=== PATIENT | female | born 1955 | race Caucasian/White ===

== ENCOUNTER → 2020-01-16 14:34 | Outpatient (CLI) | payer BC, SELFPAY | PROVIDERS: Visit Provider Nurse Practitioner | DX: R30.0 Dysuria (principal) | CPT/HCPCS: 87077; 87086; 87186 ==

== ENCOUNTER → 2020-02-16 09:10 | Outpatient (CLI) | payer BC, SELFPAY | PROVIDERS: Visit Provider Physician Assistant | DX: R30.0 Dysuria (principal) | CPT/HCPCS: 87077; 87086; 87186 ==

== ENCOUNTER → 2021-09-10 17:06 | Outpatient (CLI) | payer MEDICARE, OTHER, SELFPAY | PROVIDERS: Referring Provider Nurse Practitioner Family; Visit Provider Nurse Practitioner Family | DX: R30.0 Dysuria (principal) | CPT/HCPCS: 87077; 87086; 87186 ==

== ENCOUNTER → 2021-09-14 12:21 | Outpatient (CLI) | payer MEDICARE, OTHER, SELFPAY ==
--- NOTE | 2021-09-14 12:23 | DI.RAD.S_ITS ---
PROCEDURE: XR DEXA AXIAL SKELETON INDICATIONS: Asymptomatic menopausal state COMPARISON: None. FINDINGS: This blank DEXA report has been sent in error by the PACS system. The correct and complete report will be forthcoming in 1-2 days. Thank you for your patience and understanding. Dictated by: Jennifer Perez MD, PhD on 09/15/2021 at 7:42 Approved by: Jennifer Perez MD, PhD on 09/15/2021 at 7:42
== END ==
PROVIDERS: PCP Internal Medicine; Referring Provider Internal Medicine; Visit Provider Internal Medicine
DX: M85.852 Other specified disorders of bone density and structure, left thigh (principal); Z78.0 Asymptomatic menopausal state
CPT/HCPCS: 77080

== ENCOUNTER → 2021-12-11 11:05 | Outpatient (CLI) | payer MEDICARE, OTHER, SELFPAY ==
--- NOTE | 2021-12-11 | DI.MG.S_ITS ---
BILATERAL DIGITAL SCREENING MAMMOGRAM 3D/2D WITH CAD: 12/11/2021 CLINICAL: Routine screening. Comparison is made to exams dated: 10/16/2017 mammogram and 10/26/2015 mammogram - outside location. The tissue of both breasts is heterogeneously dense. This may lower the sensitivity of mammography. Current study was also evaluated with a Computer Aided Detection (CAD) system. No significant masses, calcifications, or other findings are seen in either breast. There has been no significant interval change. IMPRESSION: NEGATIVE There is no mammographic evidence of malignancy. A 1 year screening mammogram is recommended. This exam was interpreted at Station ID: [id number]. NOTE: For mammograms, a report in lay terms will be sent to the patient. Approximately 15% of breast malignancies will not be visualized mammographically. In the management of a palpable breast mass, a negative mammogram must not discourage biopsy of a clinically suspicious lesion. Electronically Signed By: Eros anderson/claire:12/11/2021 12:56:36 letter sent: Normal Exam ACR BI-RADS Category 1: Negative [id number]
== END ==
PROVIDERS: PCP Internal Medicine; Referring Provider Internal Medicine; Visit Provider Internal Medicine
DX: Z12.31 Encounter for screening mammogram for malignant neoplasm of breast (principal)
CPT/HCPCS: 77063; 77067

== ENCOUNTER 2022-06-13 13:45 | Outpatient (RCR) | payer MEDICARE, OTHER, SELFPAY ==
--- NOTE | 2022-06-11 10:59 | PT.OIE ---
Current Diagnoses Benign paroxysmal vertigo, right ear (06/11/22) Benign paroxysmal vertigo, left ear (06/11/22) Visit Care Team Role Provider Type Gwen Don MD Attending Provider Physician Family Provider Primary Care Provider Referring Provider Specialty: Internal Medicine Address: Phone: Email: Physical Therapy Initial Evaluation PT-OP-A Visit Information Start: 06/10/22 15:40 Freq: Status: Active Protocol: Document 06/11/22 08:56 AMB (Rec: 06/11/22 09:38 AMB [id number]) Out-Patient Physical Therapy Visit Information Visit Information Visit Type Initial Evaluation Visit Start Time 09:00 Visit Stop Time 09:45 Total Visit Minutes 45 Visit Number 1 PT-OP-B Current Condition Start: 06/10/22 15:40 Freq: Status: Active Protocol: Document 06/11/22 08:56 AMB (Rec: 06/11/22 09:38 AMB [id number]) Current Condition History of Current Condition Onset Date 2 months ago Current Complaints Dizziness History of Current Condition Dizziness started 2 months ago with a fall to the back of the head. Had been drinking a lot so doesn't remember the fall. No imaging. After about 2 weeks hearing changes seemed to mostly resolve, seemed to be in left ear ( hearing changes were a feeling of a delay of sound and a tinny sound. Reports 10 seconds of dizziness when she rolls over, bending over. Dr. Oscar Woods for the L ear 2x. Does have neck pain hx, but no surgical history. Reports she is no longer drinking. Denies diplopia, numbness/ tingling, dysphagia, dysarthria, dysmetria sx. Personal Factors Other Personal Factors That May Effect Osteopenia, neck pain, Therapy/Recovery headaches, depression, HTN, hypothyroid PT-OP-C Subjective Start: 06/10/22 15:40 Freq: Status: Active Protocol: Document 06/11/22 09:00 AMB (Rec: 06/11/22 10:53 AMB [id number]) Patient Questionnaires Dizziness Handicap Inventory DHI Score 24 PT-OP-O Vestibular Start: 06/10/22 15:40 Freq: Status: Active Protocol: Document 06/11/22 09:00 AMB (Rec: 06/11/22 10:53 AMB [id number]) Vestibular Assessment Positional Testing Darrell-Hallpike Positive Right,Negative Left, Upbeating,< 60 Seconds Comments Vestibular Comments Darrell Hallpikex2, First with visible upbeating nystagmus peristing for ~10 seconds, with sx in 3rd position. 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 PT-OP-T Assessment and Plan Start: 06/10/22 15:40 Freq: Status: Active Protocol: Document 06/11/22 09:00 AMB (Rec: 06/11/22 09:47 [facility] [id number]) Physical Therapy Assessment Rehab Potential Rehabilitation Potential Good Evaluation Complexity Number of Personal Factors/Comorbidities 1-2 Number of Body Systems Impaired 1-2 Clinical Presentation at Evaluation Stable Impairments Impairments Vestibular Goals Two Impairment Peggy Short Term Goal (STG) Myrtle will have a negative Peggy. STG Duration 4 weeks One Impairment Dizziness Short Term Goal (STG) Myrtle will roll over in bed without dizziness. 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 Assessment Summary Assessment Myrtle presents with signs of R posterior canalithiasis BPPV. She reports she was treated for L BPPV in her doctor's office. She tolerated the Peggy well, with no nystagmus and little dizziness with the second repetition. She will benefit from continued physical therapy to make sure that her BPPV is completely clear and treat as necessary. Physical Therapy Plan Frequency and Duration Frequency of Treatment 2x/Week Duration of treatment (weeks) 8 Plan of Care Start Date 06/11/22 Plan of Care End Date 08/06/22 Therapeutic Interventions Therapeutic Interventions Balance Training,Home Exercise Program,Neuromuscular Re- education,Self-Care/Home Management,Therapeutic Activities,Therapeutic Exercises,Vestibular Rehabilitation Next Visit Focus/Plan Next Note Type Treatment Note Next Visit Plan Recheck R BPPV
--- NOTE | 2022-06-11 11:00 | PT.OPPOC ---
Physical, Occupational & Speech Therapy At [facility] Current Diagnoses Benign paroxysmal vertigo, right ear (06/11/22) Benign paroxysmal vertigo, left ear (06/11/22) Visit Care Team Role Provider Type Gwen Don MD Attending Provider Physician Family Provider Primary Care Provider Referring Provider Specialty: Internal Medicine Address: Phone: Email: Plan Of Care PT-OP-T Assessment and Plan Start: 06/10/22 15:40 Freq: Status: Active Protocol: Document 06/11/22 09:00 AMB (Rec: 06/11/22 09:47 AMB [id number]) Physical Therapy Assessment Rehab Potential Rehabilitation Potential Good Evaluation Complexity Number of Personal Factors/Comorbidities 1-2 Number of Body Systems Impaired 1-2 Clinical Presentation at Evaluation Stable Impairments Impairments Vestibular Goals Two Impairment Peggy Short Term Goal (STG) Myrtle will have a negative Peggy. STG Duration 4 weeks One Impairment Dizziness Short Term Goal (STG) Myrtle will roll over in bed without dizziness. 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 Assessment Summary Assessment Myrtle presents with signs of R posterior canalithiasis BPPV. She reports she was treated for L BPPV in her doctor's office. She tolerated the Peggy well, with no nystagmus and little dizziness with the second repetition. She will benefit from continued physical therapy to make sure that her BPPV is completely clear and treat as necessary. Physical Therapy Plan Frequency and Duration Frequency of Treatment 2x/Week Duration of treatment (weeks) 8 Plan of Care Start Date 06/11/22 Plan of Care End Date 08/06/22 Therapeutic Interventions Therapeutic Interventions Balance Training,Home Exercise Program,Neuromuscular Re- education,Self-Care/Home Management,Therapeutic Activities,Therapeutic Exercises,Vestibular Rehabilitation Next Visit Focus/Plan Next Note Type Treatment Note Next Visit Plan Recheck R BPPV Plan of Care Dates Plan of Care Start Date 06/11/22 Plan of Care End Date 08/06/22 Electronically Signed by: Shaina Max, PT 06/11/22 1100 If you are in agreement with this Plan of Care, please return a signed and dated copy. I have reviewed this Plan of Care and certify that the skilled therapy services above are required to meet the patient?s needs. Physician Signature Date Printed Name and Credentials Clinical Instructor Signature Printed Name and Credentials
--- NOTE | 2022-06-13 14:16 | PT.OTN ---
Current Diagnoses Benign paroxysmal vertigo, right ear (06/13/22) Benign paroxysmal vertigo, left ear (06/13/22) Physical Therapy Treatment Note PT-OP-A Visit Information Start: 06/10/22 15:40 Freq: Status: Active Protocol: Document 06/13/22 13:47 DCW (Rec: 06/13/22 14:16 DCW [id number]) Out-Patient Physical Therapy Visit Information Visit Information Visit Type Treatment Note Visit Start Time 13:47 Visit Stop Time 14:12 Total Visit Minutes 25 Visit Number 2 PT-OP-B Current Condition Start: 06/10/22 15:40 Freq: Status: Active Protocol: Document 06/11/22 08:56 AMB (Rec: 06/11/22 09:38 AMB [id number]) Current Condition History of Current Condition Onset Date 2 months ago Current Complaints Dizziness History of Current Condition Dizziness started 2 months ago with a fall to the back of the head. Had been drinking a lot so doesn't remember the fall. No imaging. After about 2 weeks hearing changes seemed to mostly resolve, seemed to be in left ear ( hearing changes were a feeling of a delay of sound and a tinny sound. Reports 10 seconds of dizziness when she rolls over, bending over. Dr. Oscar Woods for the L ear 2x. Does have neck pain hx, but no surgical history. Reports she is no longer drinking. Denies diplopia, numbness/ tingling, dysphagia, dysarthria, dysmetria sx. Personal Factors Other Personal Factors That May Effect Osteopenia, neck pain, Therapy/Recovery headaches, depression, HTN, hypothyroid PT-OP-C Subjective Start: 06/10/22 15:40 Freq: Status: Active Protocol: Document 06/13/22 13:47 DCW (Rec: 06/13/22 14:16 DCW [id number]) OP-PT Subjective Patient Comments Patient Comments I felt pretty good since Friday, but starting today, I 've felt a little dizzy sitting up. PT-OP-O Vestibular Start: 06/10/22 15:40 Freq: Status: Active Protocol: Document 06/13/22 13:47 DCW (Rec: 06/13/22 14:16 DCW [id number]) Vestibular Assessment Comments Vestibular Comments Negative positional testing, however pt had subjective complaints of mild dizziness with left Hallpike and left roll test. PT-OP-Q Treatments Start: 06/10/22 15:40 Freq: Status: Active Protocol: Document 06/13/22 13:47 DCW (Rec: 06/13/22 14:16 DC [id number]) Canalithic Repositioning BPPV Treatment Peggy Affected Canal(s) L Posterior? Reps x1 PT-OP-T Assessment and Plan Start: 06/10/22 15:40 Freq: Status: Active Protocol: Document 06/13/22 13:47 DCW (Rec: 06/13/22 14:16 DC [id number]) Physical Therapy Assessment Impairments Impairments Vestibular Goals Two Impairment Peggy Short Term Goal (STG) Myrtle will have a negative Peggy. STG Duration 4 weeks One Impairment Dizziness Short Term Goal (STG) Myrtle will roll over in bed without dizziness. 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 Assessment Summary Assessment Positional testing negative today, however pt noted subjective mild rotational vertigo, more when left side was dependent. Performed left Peggy to ensure symptoms were not just lingering otolith debris in her posterior canal, pt had subjective complaints in first and third position. Unclear if further testing needed at this time, pt instructed to keep next follow -up appointment if she reports continued symptoms. Physical Therapy Plan Frequency and Duration Frequency of Treatment 2x/Week Duration of treatment (weeks) 8 Plan of Care Start Date 06/11/22 Plan of Care End Date 08/06/22 Therapeutic Interventions Therapeutic Interventions Balance Training,Home Exercise Program,Neuromuscular Re- education,Self-Care/Home Management,Therapeutic Activities,Therapeutic Exercises,Vestibular Rehabilitation Next Visit Focus/Plan Next Note Type Treatment Note Next Visit Plan Recheck B BPPV
--- NOTE | 2022-06-18 10:55 | PT-OP ANOTE ---
No show- called and left voicemail asking pt to call clinic back to state whether she wants continued visits as televox currently down.
--- NOTE | 2022-06-28 15:05 | PT.OPDS ---
Current Diagnoses Benign paroxysmal vertigo, right ear (06/13/22) Benign paroxysmal vertigo, left ear (06/13/22) Visit Care Team Role Provider Type Gwen Don MD Attending Provider Physician Family Provider Primary Care Provider Referring Provider Specialty: Internal Medicine Address: Phone: Email: Visit Number Visit Number 2 Discharge Summary PT-OP-B Current Condition Start: 06/10/22 15:40 Freq: Status: Active Protocol: Document 06/11/22 08:56 AMB (Rec: 06/11/22 09:38 AMB [id number]) Current Condition History of Current Condition Onset Date 2 months ago Current Complaints Dizziness History of Current Condition Dizziness started 2 months ago with a fall to the back of the head. Had been drinking a lot so doesn't remember the fall. No imaging. After about 2 weeks hearing changes seemed to mostly resolve, seemed to be in left ear ( hearing changes were a feeling of a delay of sound and a tinny sound. Reports 10 seconds of dizziness when she rolls over, bending over. Dr. Oscar Woods for the L ear 2x. Does have neck pain hx, but no surgical history. Reports she is no longer drinking. Denies diplopia, numbness/ tingling, dysphagia, dysarthria, dysmetria sx. Personal Factors Other Personal Factors That May Effect Osteopenia, neck pain, Therapy/Recovery headaches, depression, HTN, hypothyroid PT-OP-C Subjective Start: 06/10/22 15:40 Freq: Status: Active Protocol: Document 06/13/22 13:47 DCW (Rec: 06/13/22 14:16 DCW [id number]) OP-PT Subjective Patient Comments Patient Comments I felt pretty good since Friday, but starting today, I 've felt a little dizzy sitting up. PT-OP-O Vestibular Start: 06/10/22 15:40 Freq: Status: Active Protocol: Document 06/13/22 13:47 DCW (Rec: 06/13/22 14:16 DCW [id number]) Vestibular Assessment Comments Vestibular Comments Negative positional testing, however pt had subjective complaints of mild dizziness with left Hallpike and left roll test. PT-OP-T Assessment and Plan Start: 06/10/22 15:40 Freq: Status: Active Protocol: Document 06/28/22 15:05 AMB (Rec: 06/28/22 15:05 [facility] [id number]) Physical Therapy Assessment Goals Two Impairment Peggy Short Term Goal (STG) Myrtle will have a negative Peggy. STG Duration MET One Impairment Dizziness Short Term Goal (STG) Myrtle will roll over in bed without dizziness. 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 LTG Duration MET Assessment Summary Assessment Pt called clinic after last visit stating that she felt back to normal and was ready for discharge. Physical Therapy Plan Discharge Physical Therapy Discharge Reasons Goals Met
== END 2022-07-03 13:42 | disposition home or self-care (01) ==
LOC: PHYS 13:45
PROVIDERS: Family Provider Internal Medicine; PCP Internal Medicine; Referring Provider Internal Medicine; Visit Provider Internal Medicine
DX: H81.13 Benign paroxysmal vertigo, bilateral (principal)
CPT/HCPCS: 95992; 97140; 97161

== ENCOUNTER 2022-07-22 09:54 | Day surgery (SDC) | payer MEDICARE, OTHER, SELFPAY ==
--- NOTE | 2022-07-22 | PATH_ITS ---
[facility] [place] Accession Number: [id number] . 01 Material submitted: . colon - ASCENDING COLON POLYP . 01 Diagnosis: Ascending Colon Polyp: Tubular adenoma. MRV 07/24/2022 1506 Local . 01 Electronically signed: . King Metcalf MD, PhD, Pathologist NPI- [id number] . 01 Gross description: . ASCENDING COLON POLYP: Received in formalin is 1 fragment(s) of alves, soft tissue measuring 0.1 x 0.1 x 0.1 cm submitted entirely in 1 cassette(s) /CPE 07/23/2022 1027 Local . 01 Pathologist provided ICD-10: D12.2 . 01 CPT . 673390 Specimen Comment: A courtesy copy of this report has been sent to [phone], [phone] Specimen Comment: 2055 Performed at: 01 [facility] [address] [place] [address] [id number] MD Beto New MD Phone: [phone]
[2022-07-22 10:13] VITALS: BMI 24.5
[2022-07-22 10:19] VITALS: BP 129/70; PULSE 94; RESP 18; TEMP 36.5; O2SAT 99
[2022-07-22] MEDS: LACTATED RINGERS 1,000 ML 42 ML IV (10:25)
[2022-07-22 10:47] LABS: COVID19 -Nasal RAPID Negative (Negative)
--- NOTE | 2022-07-22 10:54 | PM.HP.1 ---
History of Present Illness History of Present Illness Date Patient Seen: 07/22/22 Time Patient Seen: 10:55 Chief complaint: Colonoscopy Narrative: Personal history of unknown histology colon polyps. Patient History Family & Social History Tobacco & Substance use: Smoking Status Never smoker alcohol intake former Substance Use Type does not use Meds Home Medications and Allergies Home Medications Medication Instructions Recorded Confirmed Type losartan 50 mg tablet 50 mg PO DAILY 07/22/22 07/22/22 History rosuvastatin 20 mg tablet 20 mg PO DAILY 07/22/22 07/22/22 History venlafaxine 150 mg 150 mg PO DAILY 07/22/22 07/22/22 History capsule,extended release 24 hr (Effexor XR) Allergies Allergy/AdvReac Type Severity Reaction Status Date / Time No Known Drug Allergies Allergy Verified 09/10/21 17:15 Review of Systems Review of Systems ROS: Yes All systems reviewed with the patient and are negative except as otherwise documented Exam Vital Signs (past 8 hours): - 07/22/22 10:19 Temperature 97.7 F Pulse Rate 94 H Respiratory Rate 18 Blood Pressure 129/70 Pulse Oximetry 99 Oxygen Delivery Method Room Air Oxygen Delivery Method Room Air Const General: cooperative HENMT Head: normal to inspection Eyes General: appearance normal, both eyes and all related structures Neck Neck: normal visual inspection Chest Chest: normal inspection of the chest Resp Effort & Inspection: normal respiratory effort Cardio Rate: regular rate GI Inspection: normal to inspection Skin General: no rashes or lesions noted Neuro General: patient alert and patient awake Extrem General: normal to inspection and no pedal edema Psych Appearance: grossly normal Objective Labs Labs: Laboratory Results - last 24 hr 07/22/22 10:18 SARS-CoV-2 (PCR) Negative Assessment & Plan Assessment & Plan narrative: 67-year-old female with a personal history of unknown histology polyps. Surveillance colonoscopy is pursued today. Time Spent With Patient Critical Care time: I spent a total of [] minutes of critical care time on this patient's care today; this time is exclusive of procedural time.
--- NOTE | 2022-07-22 10:56 | PM.PREOP ---
Pre-operative Note COVID-19 COVID-19 status: Negative Result date/Date tested (Pos, Neg/Pending): 07/22/22 Criteria for continued procedure: Possibility delay results in more complex future surgery or treatment Interval Note History & Physical reviewed/Exam performed by Physician: Yes Changes to H&P: No ASA Class (for procedural sedation): II
--- NOTE | 2022-07-22 12:09 | PM.OP.COLON ---
Operative Date/Time/Diagnoses Date of procedure: 07/22/22 Time of procedure: 12:09 Pre-op diagnosis: History of colon polyps Post-op diagnosis: same Procedure & Clinicians Study performed: Colonoscopy with cold forceps polypectomy Same procedure as scheduled: Yes Indications: History of colon polyps Surgeon: Lee Núñez Procedure Notes SCOAP/Timeout: Done Procedure in detail: After the risks and benefits were explained, written and verbal informed consent was obtained. The patient was brought into the procedure room and placed into the left lateral decubitus position. Please see anesthesia notes for sedation details. Digital rectal examination was accomplished. The scope was introduced into the patient and advanced under direct visualization to the cecum as identified by the appendiceal orifice and ileocecal valve. The scope was slowly withdrawn to carefully examine the mucosa for any defects or lesions. Comprehensive imaging was accomplished throughout the rectum including the dentate line. The colon was decompressed, the scope was then removed from the patient who tolerated the procedure well. Adult colonoscope Bowel prep adequate Scope withdrawal time: 8 minutes Sedation minutes: 18 Complications: none Impression: There was diverticulosis noted from the sigmoid through to the ascending colon. A diminutive polyp was removed from the ascending colon with cold forceps. No additional pathology was appreciated throughout. Endoscopic diagnosis 1. Small colon polyp 2. Diverticulosis Post-procedure Plan for aftercare: 1. Await histopathology. 2. If adenomatous features are confirmed, repeat colonoscopy will be suggested for 7 years. Disposition: PACU
[2022-07-22 12:13] VITALS: BP 108/64; PULSE 84; RESP 13; TEMP 36.3; O2SAT 95
[2022-07-22 12:17] VITALS: BP 102/60; PULSE 79; RESP 14; O2SAT 95
[2022-07-22 12:22] VITALS: BP 107/62; PULSE 81; RESP 13; O2SAT 95
[2022-07-22 12:28] VITALS: BP 111/62; PULSE 84; RESP 14; O2SAT 100
[2022-07-22 12:31] VITALS: BP 118/72; PULSE 86; RESP 15; TEMP 36.4; O2SAT 98
== END 2022-07-22 12:51 | disposition home or self-care (01) ==
PROVIDERS: Family Provider Internal Medicine; PCP Internal Medicine; Referring Provider Internal Medicine Gastroenterology; Visit Provider Internal Medicine Gastroenterology
PROC: 0DJD8ZZ Inspection of Lower Intestinal Tract, Via Natural or Artificial Opening Endoscopic (ICD-10-PCS; CPT 45378; principal; 2022-07-22 11:00)
DX: Z12.11 Encounter for screening for malignant neoplasm of colon (principal); Z86.010 Personal history of colon polyps; Z20.822 Contact with and (suspected) exposure to COVID-19; K57.30 Diverticulosis of large intestine without perforation or abscess without bleeding; D12.2 Benign neoplasm of ascending colon
CPT/HCPCS: 45380; 87635; J2250; J2704; J3010

== ENCOUNTER → 2023-02-11 13:19 | Outpatient (CLI) | payer MEDICARE, OTHER, SELFPAY ==
--- NOTE | 2023-02-11 | DI.MG.S_ITS ---
BILATERAL DIGITAL SCREENING MAMMOGRAM 3D/2D WITH CAD: 02/11/2023 CLINICAL: Routine screening. Comparison is made to exams dated: 12/11/2021 mammogram - [facility], 10/16/2017 mammogram, and 10/26/2015 mammogram - outside location. Both breasts are heterogeneously dense, which may obscure small masses (category c / 51-75% glandular tissue). Current study was also evaluated with a Computer Aided Detection (CAD) system. There are mole markers on the right breast. No significant masses, calcifications, or other findings are seen in either breast. There has been no significant interval change. IMPRESSION: NEGATIVE There is no mammographic evidence of malignancy. A 1 year screening mammogram is recommended. Based on the Tyrer Cuzick model (a risk assessment model) the patient's lifetime risk is 10.0% and her 10 year risk is 5.6%. According to the ACR, ACS, and NCCN guidelines, an annual breast MRI exam along with mammogram is recommended if the patient's lifetime risk is 20% or greater. This exam was interpreted at Station ID: [id number]. NOTE: For mammograms, a report in lay terms will be sent to the patient. Approximately 15% of breast malignancies will not be visualized mammographically. In the management of a palpable breast mass, a negative mammogram must not discourage biopsy of a clinically suspicious lesion. Electronically Signed By: Justin angel/claire:02/11/2023 16:10:03 letter sent: Normal Exam ACR BI-RADS Category 1: Negative 3341F
== END ==
PROVIDERS: Family Provider Internal Medicine; PCP Internal Medicine; Referring Provider Internal Medicine; Visit Provider Internal Medicine
DX: Z12.31 Encounter for screening mammogram for malignant neoplasm of breast (principal)
CPT/HCPCS: 77063; 77067

== ENCOUNTER → 2023-05-14 08:47 | Outpatient (CLI) | payer MEDICARE, OTHER, SELFPAY ==
[2023-05-16 12:45] LABS: Candida species Negative (Negative); Gardnerella vaginalis Negative (Negative); Trichomoas vaginalis Negative (Negative)
== END ==
PROVIDERS: Family Provider Internal Medicine; PCP Internal Medicine; Visit Provider Student in an Organized Health Care Education/Training Program
DX: N89.8 Other specified noninflammatory disorders of vagina (principal)
CPT/HCPCS: 87480; 87510; 87660

== ENCOUNTER → 2024-04-07 15:30 | Outpatient (CLI) | payer MEDICARE, SELFPAY ==
--- NOTE | 2024-04-07 15:31 | DI.MG.S_ITS ---
BILATERAL DIGITAL SCREENING MAMMOGRAM 3D/2D WITH CAD: 04/07/2024 CLINICAL: Routine screening. Comparison is made to exams dated: 02/11/2023 mammogram, 12/11/2021 mammogram - [facility], and 10/16/2017 mammogram - outside location. The breasts are heterogeneously dense, which may obscure small masses (category c / 51-75% glandular tissue). Current study was also evaluated with a Computer Aided Detection (CAD) system. No significant masses, calcifications, or other findings are seen in either breast. There has been no significant interval change. IMPRESSION: NEGATIVE There is no mammographic evidence of malignancy. A 1 year screening mammogram is recommended. Based on the Tyrer Cuzick model (a risk assessment model) the patient's lifetime risk is 9.4% and her 10 year risk is 5.6%. According to the ACR, ACS, and NCCN guidelines, an annual breast MRI exam along with mammogram is recommended if the patient's lifetime risk is 20% or greater. This exam was interpreted at Station ID: [id number]. NOTE: For mammograms, a report in lay terms will be sent to the patient. Approximately 15% of breast malignancies will not be visualized mammographically. In the management of a palpable breast mass, a negative mammogram must not discourage biopsy of a clinically suspicious lesion. Electronically Signed By: Cony Michael M.D., Ph.D. scott/claire:04/09/2024 08:22:14 letter sent: Normal Exam ACR BI-RADS Category 1: Negative
== END ==
PROVIDERS: Family Provider Internal Medicine; PCP Internal Medicine; Referring Provider Internal Medicine; Visit Provider Internal Medicine
DX: Z12.31 Encounter for screening mammogram for malignant neoplasm of breast (principal); R92.333 Mammographic heterogeneous density, bilateral breasts
CPT/HCPCS: 77063; 77067